=== PATIENT | male | born 1960 | race Caucasian/White ===

== ENCOUNTER 2017-09-17 15:59 | Emergency (ER) | payer SELFPAY ==
[~2017-09-17] VITALS: Ht 157.5 cm; Wt 58.2 kg
[2017-09-17 16:26] VITALS: BP 148/77
[2017-09-17] MEDS ORDERED: OMEP20 PO (16:26)
[2017-09-17] MEDS ORDERED: CITA-106 PO (16:26)
[2017-09-17] MEDS ORDERED: LISI-662 PO (16:26)
== END 2017-09-17 18:56 | disposition left against medical advice (07) ==
LOC: EMS 16:01
DX: Z53.21 Procedure and treatment not carried out due to patient leaving prior to being seen by health care provider (principal)

== ENCOUNTER 2017-09-17 19:48 | Emergency (ER) | payer OTHER ==
[~2017-09-17] VITALS: Ht 157.5 cm; Wt 58.2 kg
[~2017-09-17 19:48] MED LIST: CITA-106 PO; LISI-662 PO; OMEP20 PO
[2017-09-17] MEDS ORDERED: POVIDONE-IODINE 10% 15 ML SOLUTION UD TP ONE (21:00)
[2017-09-17] MEDS ORDERED: ACETAMINOPHEN 500 MG TABLET PO ONE (21:00)
[2017-09-17 21:37] VITALS: BP 144/87
== END 2017-09-17 21:40 | disposition home or self-care (01) ==
LOC: EMS 19:49
DX: S00.91XA Abrasion of unspecified part of head, initial encounter (principal); F32.9 Major depressive disorder, single episode, unspecified; I10 Essential (primary) hypertension; K21.9 Gastro-esophageal reflux disease without esophagitis; F17.210 Nicotine dependence, cigarettes, uncomplicated; Z79.899 Other long term (current) drug therapy
CPT/HCPCS: 99283